=== PATIENT | female | born 1990 | race Caucasian/White ===

== ENCOUNTER 2018-04-11 08:47 | Emergency (ER) | payer OTHER ==
[2018-04-11 08:56] VITALS: BP 111/65
--- NOTE | 2018-04-11 10:08 | UC ---
Psychiatric Complaint HPI - HPI Summary HPI Summary: 28-year-old female comes in to clinic today with a chief complaint of anxiety. She reports she suffered from anxiety for years. She also suffers from GERD and she is on Nexium for IT. She is a permanent to see her doctor on April 14, 2018. She has to be started on an antianxiety medication. Denies any suicidal ideation. Sleep sometimes is disturbed concentration is intermittent. Denies any blood in the stools or black stools. She reports that when she sees her doctor she will be getting blood work. No history of hypothyroidism. - History Of Current Complaint Chief Complaint: UCGeneralIllness Stated Complaint: ANXIOUS Time Seen by Provider: 04/11/18 09:55 Hx Last Menstrual Period: 03/14/18 - Allergies/Home Medications Allergies/Adverse Reactions: Allergies Allergy/AdvReac Type Severity Reaction Status Date / Time No Known Allergies Allergy Verified 04/11/18 08:56 Home Medications: Home Medications Esomeprazole(NF) [NexIUM(NF)] 40 mg PO DAILY 04/11/18 [History Confirmed ] Ranitidine TAB (NF) [Zantac TAB (NF)] 150 mg PO BEDTIME 04/11/18 [History Confirmed 04/11/18] PMH/Surg Hx/FS Hx/Imm Hx GI/ History: Gastroesophageal Reflux Psychological History: Anxiety - Surgical History Surgical History: Yes Surgery Procedure, Year, and Place: T&a, wisdom teeth extraction - Family History Known Family History: Positive: Non-Contributory - Social History Alcohol Use: Rare Substance Use Type: None Smoking Status (MU): Never Smoked Tobacco Review of Systems All Other Systems Reviewed And Are Negative: Yes Constitutional: Positive: Negative Skin: Positive: Negative Eyes: Positive: Negative ENT: Positive: Negative Respiratory: Positive: Negative Cardiovascular: Positive: Negative Gastrointestinal: Positive: Other - HX GERD Motor: Positive: Negative Neurovascular: Positive: Negative Musculoskeletal: Positive: Negative Neurological: Positive: Negative Psychological: Positive: Negative Is Patient Immunocompromised?: No Physical Exam Appearance: Well-Appearing, No Pain Distress, Well-Nourished Vital Signs: Initial Vital Signs Temp 98.2 F 04/11/18 08:50 Pulse 75 04/11/18 08:50 Resp 18 04/11/18 08:50 BP 111/65 04/11/18 08:50 Pulse Ox 100 04/11/18 08:50 Vital Signs Reviewed: Yes Eye Exam: Normal Eyes: Positive: Conjunctiva Clear ENT: Positive: Pharynx normal Neck exam: Normal Neck: Positive: Supple Respiratory Exam: Normal Respiratory: Positive: Lungs clear, Normal breath sounds, No respiratory distress Cardiovascular: Positive: RRR Abdomen Description: Positive: Soft, Other: - Mild tenderness to palpation in the epigastrium. Negative: Distended, Guarding Musculoskeletal Exam: Normal Musculoskeletal: Positive: Strength Intact, ROM Intact Neurological Exam: Normal Neurological: Positive: Alert, Muscle Tone Normal Psychological Exam: Normal Psychological: Positive: Age Appropriate Behavior Skin Exam: Normal Psych Complaint Course/Dx - Course Course Of Treatment: The plan is to start the patient on buspirone 5 mg by mouth twice a day and follow-up with her doctor as scheduled on April 14, 2018. Patient denies any suicidal ideation. I let the patient know if anything gets worse and she has any suicidal ideation or any other concerns she is to go the emergency department and she agreed. - Differential Dx/Diagnosis Provider Diagnoses: ANXIETY Discharge - Sign-Out/Discharge Documenting (check all that apply): Patient Departure All imaging exams completed and their final reports reviewed: No Studies - Discharge Plan Condition: Stable Disposition: HOME Prescriptions: busPIRone TAB* [Buspar TAB*] 5 mg PO BID #60 tab Patient Education Materials: Anxiety (ED) Referrals: [facility] [Provider Group] Additional Instructions: FOLLOW UP WITH YOUR DOCTOR SCHEDULED 04/14/18. GO TO THE EMERGENCY DEPARTMENT FOR ANY WORSENING OF YOUR CONDITION; WORSENING ANXIETY, YOU FEEL LIKE HURTING YOURSELF OR QUESTIONS OR CONCERNS. - Billing Disposition and Condition Condition: STABLE Disposition: Home
== END 2018-04-11 10:12 | disposition home or self-care (01) ==
LOC: UCEAST 08:47
DX: F41.9 Anxiety disorder, unspecified (principal); K21.9 Gastro-esophageal reflux disease without esophagitis
CPT/HCPCS: 99212; G0463

== ENCOUNTER 2018-09-03 11:18 | Emergency (ER) | payer OTHER ==
--- NOTE | 2018-09-03 11:46 | ED ---
Syncope/Near Syncope - HPI Summary HPI Summary: A 28 y/o F presents to ED s/p syncope, near-syncope onset approx. 1000. Associated sx: mildly tremulous, nausea, lightheadedness. Denies CP, abd pain. She states just feeling weird and that she was going in and out of it. Last night, she notes having some GERD and allergies. She woke up more or less at baseline, took more CBD oil than she typically does, walked up the sugar run to [place], and had breakfast at a caf. She had a syncopal/near-syncopal episode while seated at the table, and she was dazed when she regained consciousness. She states these sorts of sx have happened once before, while sitting at a caf , she thought she was going to pass out. That time things spontaneously resolved. No PMHx DM, HTN. Medications discussed. - History Of Current Complaint Chief Complaint: EDSyncope Time Seen by Provider: 09/03/18 11:39 Hx Obtained From: Patient, Medical Records, Other: - boyfriend Onset/Duration: Sudden Onset, Lasting Minutes, Still Present Timing: Constant Activity At Onset: At Rest Associated Head Trauma: No Associated Signs And Symptoms: Lightheadedness, Other - pos: nausea, mildly tremulous. neg: CP, abd pain - Allergies/Home Medications Allergies/Adverse Reactions: Allergies Allergy/AdvReac Type Severity Reaction Status Date / Time No Known Allergies Allergy Verified 09/03/18 11:37 PMH/Surg Hx/FS Hx/Imm Hx Previously Healthy: No Endocrine/Hematology History: Denies: Hx Diabetes Cardiovascular History: Denies: Hx Hypertension EENT History: Reports: Hx Seasonal Allergies Psychiatric History: Reports: Hx Depression - Surgical History Surgery Procedure, Year, and Place: T&a, wisdom teeth extraction Infectious Disease History: No Infectious Disease History: Denies: Traveled Outside the [place] in Last 30 Days - Family History Known Family History: Positive: Other - CA, GERD - Social History Occupation: Student Lives: Alone Alcohol Use: Rare Substance Use Type: Reports: None Smoking Status (MU): Never Smoked Tobacco Review of Systems Negative: Chest Pain Positive: Nausea. Negative: Abdominal Pain Musculoskeletal: Other - pos: mildly tremulous Neurological: Other - pos: lightheadedness Positive: Syncope - near-syncope All Other Systems Reviewed And Are Negative: Yes Physical Exam - Summary Physical Exam Summary: Appearance: Well-appearing, Well-nourished, lying in bed comfortably Skin: Warm, dry, no obvious rash Eyes: sclera anicteric, no conjunctival pallor ENT: mucous membranes moist, pharynx appears normal Neck: Supple, nontender Respiratory: Clear to auscultation, no signs of respiratory distress Cardiovascular: Normal S1, S2. No murmurs. Normal distal pulses in tibial and radial bilaterally. Abdomen: Soft, nontender, normal active bowel sounds present Musculoskeletal: Normal, Strength/ROM Intact Neurological: A&Ox3, awake and alert, mentation is normal, speech is fluent and appropriate Psychiatric: affect is normal, does not appear anxious or depressed Triage Information Reviewed: Yes Vital Signs On Initial Exam: Initial Vitals Temp Pulse Resp BP Pulse Ox 98.7 F 80 18 117/74 99 09/03/18 11:34 09/03/18 11:34 09/03/18 11:34 09/03/18 11:34 09/03/18 11:34 Vital Signs Reviewed: Yes Diagnostics - Vital Signs Vital Signs Temp Pulse Resp BP Pulse Ox 09/03/18 11:34 98.7 F 80 18 117/74 99 - Laboratory Result Diagrams: 09/03/18 12:01 09/03/18 12:01 Lab Statement: Any lab studies that have been ordered have been reviewed, and results considered in the medical decision making process. - EKG 1154 Cardiac Rate: NL - 86 bpm EKG Rhythm: Sinus Rhythm Summary of EKG Findings: NSR at 86 BPM, P waves, QRS complex, and T waves are within normal limits, T waves and intervals are normal, no ischemic changes. Re-Evaluation - Re-Evaluation 1 Re-Evaluation Time: 14:01 Comment: Discussing results with pt. 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 1000. She's feeling mildly tremulous, nausea, lightheaded , but denies CP, abd pain. She states using more CBD oil this morning than usual. Medications reviewed. EKG is NSR at 86 bpm. Lab work is WNL. UA is unremarkable. Will discharge patient home. - Diagnoses Provider Diagnoses: Near syncope Discharge - Sign-Out/Discharge Documenting (check all that apply): Patient Departure - DC Patient Received Moderate/Deep Sedation with Procedure: No - Discharge Plan Condition: Good Disposition: HOME Patient Education Materials: Near Syncope (ED) Referrals: [facility] [Outside] - If Needed Additional Instructions: I would recommend avoiding the CBD oil, at least until the cause of your symptoms is clarified. - Billing Disposition and Condition Condition: GOOD Disposition: Home - Attestation Statements Document Initiated by Fei: Yes Documenting Scribe: Alison Pinto Provider For Whom Fei is Documenting (Include Credential): Dr. Rowdy Montgomery MD Scribe Attestation: I, Alison Pinto, scribed for Dr. Rowdy Montgomery MD on 09/06/18 at 0624. Scribe Documentation Reviewed: Yes Provider Attestation: The documentation as recorded by the Alison olivier accurately reflects the service I personally performed and the decisions made by me, Dr. Rowdy Montgomery MD Status of Scribe Document: Viewed
[2018-09-03] MEDS ORDERED: NS 0.9% 1000 ML** 2,000 ML IV ONE (11:47)
[2018-09-03 12:17] LABS: ABS Basophils 0.1 10^3/ul (0-0.2); ABS Eosinophils 0.2 10^3/ul (0-0.6); ABS Lymphocytes 1.9 10^3/ul (1.0-4.8); ABS Monocytes 0.7 10^3/ul (0-0.8); ABS Neutrophils 3.9 10^3/ul (1.5-7.7); ABS Nucleated RBC 0 10^3/ul; Eosinophil % 2.3 %; Hematocrit 36 % (33-41); Mean Corpuscular HGB Conc 33 g/dL (31-36); Mean Corpuscular Hemoglobin 29 pg (27-31); Mean Corpuscular Volume 88 fL (80-97); Mean Platelet Volume 7.9 fL (7.4-10.4); Nucleated Red Blood Cells % 0.1; Platelet Count 247 10^3/uL (150-450); Red Blood Count 4.09 10^6 /uL (3.70-4.87); Red Cell Distribution Width 14 % (10.5-15); White Blood Count 6.7 10^3/uL (3.5-10.8)
--- OUTSIDE RECORDS SUMMARY | 2018-09-03 12:31 | XMS REPORT | Continuity of Care Document ---
:1990 External Reference #:[id number] Author Name Brigid Echeverria PA-C Address [address] [place] [address] [place] [address] Care Team Providers Name Role Phone Kelly Murphy NP Care Team Information Manager [employer] Unavailable Kelly Murphy NP Primary Care Physician Unavailable Payers Date Identification Numbers Payment Provider Subscriber Policy Number: [id number] [facility] Mae Quintanilla Group Number: [id number] [address] PayID: [id number] [place] [address] Advance Directives Description No Information Available Problems Date Description Provider Status Onset: 05/30/2018 Abdominal pain Brigid Echeverria PA-C Active Onset: 04/29/2018 Epigastric pain Brigid Echeverria PA-C Active Onset: 04/29/2018 Flatulence, eructation and gas Brigid Echeverria PA-C Active pain Onset: 04/29/2018 Gastroesophageal reflux disease Brigid Echeverria PA-C Active Family History Date Family Member(s) Observation Comments Father Pancreatic Cancer Mother Gastroesophageal Reflux Disease (GERD) Social History Type Date Description Comments Sex Unknown Tobacco Use Start: Unknown Patient has never smoked Smoking Status Reviewed: 08/06/18 Patient has never smoked Allergies, Adverse Reactions, Alerts Description No Known Drug Allergies Medications Medication Date Status Form Strength Qnty SIG Indications Ordering Provider Dexilant Active Capsules 30mg 60caps take one K21.9 William 019 capsule Tc, by mouth DO twice a day Baclofen Active Tablets 10mg 90tabs Take 1 K21.9 Elizabeth 018 Tablet By Rudolph clarke MD Three Times A Day Before Meals Ranitidine HCL Active Tablets 300mg 60tabs 1 tab PO K21.9 William 018 prn Tc, DO Viibryd Active Tablets 10mg 1 by Unknown 000 mouth every day Xifaxan Hx Tablets 550mg 42tabs 1 tablet William 019 - by mouth Tc, 3 times DO 019 daily for 14 days Carafate Hx Tablets 1gm 90tabs 1 tablet Elizabeth 019 - by mouth Fobelkys-Pessi on an MD vince 019 empty stomach 3-4 times daily Dexilant Hx Capsules 60mg 30caps 1 by William Saravia - DR mouth Tc, every day DO 019 Xifaxan Hx Tablets 550mg 42tabs 1 tablet R14.0 William 019 - by mouth Tc, 3 times DO 019 daily for 14 days Baclofen Hx Tablets 5mg 90tabs 1 tab by K21.9 William 018 - mouth tid Tc, before DO 018 meals Bupropion HCL Hx Tablets ER 150mg Proper,Adam ER (XL) 000 - 24HR ly,COVER MAKING MACHINE OPERATOR 019 Esomeprazole Hx Capsules 40mg Proper,Adam Magnesium 000 - DR ly,COVER MAKING MACHINE OPERATOR 019 Immunizations Description No Information Available Vital Signs Date Vital Result Comment 08/06/2018 8:16am Height 64 inches 5'4" Weight 128.00 lb BMI (Body Mass Index) 22.0 kg/m2 07/09/2018 8:56am Height 64 inches 5'4" Weight 126.00 lb BMI (Body Mass Index) 21.6 kg/m2 05/30/2018 9:14am Height 64 inches 5'4" Weight 130.00 lb BMI (Body Mass Index) 22.3 kg/m2 04/29/2018 8:16am Height 64 inches 5'4" Weight 125.00 lb BP Systolic 104 mmHg BP Diastolic 70 mmHg BMI (Body Mass Index) 21.5 kg/m2 Results Test Date Facility Test Result H/L Range Note Laboratory test 06/13/2018 [facility] – [place] Clotest SEE RESULT 1, 2 finding BELOW Laboratory test 06/13/2018 [facility] [place] Surgical SEE RESULT 3, 4 finding Interface Order BELOW 1 [id number] SEE RESULT BELOW Name: DWIGHTMAE : [address]: William Montez DO Acct: [id number] Unit: [id number] AGE: 28 Location: [facility] Re06/13/18 SEX: F Status: DEP REF SPEC: [id number] JOEY: 06/13/18-934 [facility] DR: William Montez DO REQ: [id number] RECD: 06/13/18 STATUS: TAWANDA BOND DR: Cici Primary Care Phys,NOPCP _ SOURCE: GAS ANTRUM SPDESC: ORDERED: Ignacio COMMENTS: [id number] Procedure Result Reported Site Clotest Final 06/14/18- 713 ML Clotest Negative * ML - Main Lab . END OF REPORT DEPARTMENT OF PATHOLOGY, [address] [place] [address] Cosme Biswas M.D. Director [facility] # [id number] 3 [id number] 4 SEE RESULT BELOW Name: MAE QUINTANILLA : [address]: William Montez DO Acct: [id number] Unit: [id number] AGE: 28 Location: ENDOCEC Re06/13/18 SEX: F Status: DEP REF SPEC: [id number] JOEY: 06/13/18-0932 [facility] DR: William Montez DO REQ: [id number] RECD: 06/13/187772 STATUS: MICHAELA BOND DR: Kelly Murphy COVER MAKING MACHINE OPERATOR _ ORDERED: LEVEL 4/5 COMMENTS: [id number] FINAL DIAGNOSIS 1. Small bowel, duodenum, biopsy: -- Small bowel mucosa with normal villous architecture and no significant pathologic abnormality. 2. Stomach, body, biopsy: -- Gastric antral and fundic gland mucosa with minimal patchy chronic inflammation. -- No active gastritis nor Helicobacter pylori-like organisms identified on H E microscopy. See comment. 3. Distal esophagus at 41 cm, biopsy: -- Gastroesophageal transition zone mucosa with mild nonspecific inflammation and reactive glandular epithelial changes. -- No specific features of reflux esophagitis identified. -- No goblet cell/intestinal metaplasia or dysplasia identified. 4. Distal esophagus at 40 cm, biopsy: -- Gastroesophageal transition zone mucosa with mild nonspecific inflammation and reactive glandular epithelial changes. -- No specific features of reflux esophagitis identified. -- No goblet cell/intestinal metaplasia or dysplasia identified. 5. Esophagus, mid, biopsy: -- Squamous mucosa with no significant pathologic abnormality. --No glandular component identified. Comment: An immunohistochemical stain for Helicobacter pylori-like organisms is pending in part 2 and will be reported in an addendum. CONTINUED ON NEXT PAGE DEPARTMENT OF PATHOLOGY, [address] [place] [address] Cosme Biswas M.D. Director [facility] # [id number] RUN DATE: 06/16/18 [facility] LAB LIVE PAGE 2 Patient: MAE QUINTANILLA [id number] (Continued) POST-OPERATIVE DIAGNOSIS (Continued) POST-OPERATIVE DIAGNOSIS EGD: esophagus - COM2 unknown Powers?s esophagus with island; biopsy 41 cm; no hiatal hernia; 40 cm island; gastric - gastritis antrum; BRANDON test; gastropathy mild body; duodenum - normal, biopsy, rule out Celiac disease GROSS DESCRIPTION 1. The specimen is received in formalin labeled, Duodenal Biopsy, and consists of a 0.8 x 0.4 x 0.2 cm aggregate of breen-pink irregular soft tissue fragments which is submitted entirely in one cassette. 2. The specimen is received in formalin labeled, Gastric Body Biopsy, and consists of two breen-pink irregular soft tissue fragments measuring 0.3 x 0.2 x 0.1 cm and 0.9 by up to 0.2 x 0.1 cm which are submitted entirely in one cassette. 3. The specimen is received in formalin labeled, Distal Esophagus at 41 cm , and consists of a 0.9 x 0.5 x 0.1 cm aggregate of breen-pink irregular soft tissue fragments which is submitted entirely in one cassette. 4. The specimen is received in formalin labeled, Distal Esophagus at 40 cm Biopsy, and consists of two breen-pink irregular soft tissue fragments measuring 0.4 x 0.2 x 0.1 cm and 0.5 by up to 0.3 x 0.1 cm which are submitted entirely in one cassette. 5. The specimen is received in formalin labeled, Mid Esophagus Biopsy, and consists of a 0.4 x 0.4 x 0.1 cm aggregate of translucent breen-white irregular soft tissue fragments which is submitted entirely in one cassette. Signed by and Reported on: Cosme Biswas MD 1147 END OF REPORT DEPARTMENT OF PATHOLOGY, [address] [place] [address] Cosme Biswas M.D. Director [facility] # [id number] SEE RESULT BELOW Name: MAE QUINTANILLA : [address]: William Montez DO Acct: [id number] Unit: [id number] AGE: 28 Location: ENDOCEC Re06/13/18 SEX: F Status: DEP REF SPEC: [id number] JOEY: 06/13/180932 [facility] DR: William Montez DO REQ: [id number] RECD: 06/13/188413 STATUS: MICHAELA BOND DR: Kelly Murphy COVER MAKING MACHINE OPERATOR _ ORDERED: LEVEL 4/5, IMMUNO-FIRST COMMENTS: [id number] ADDENDUM Addendum: An immunohistochemical stain for Helicobacter pylori-like organisms performed with appropriate controls on part 2 is negative. Addendum Signed (signature on file) Cosme Biswas MD 1409 FINAL DIAGNOSIS 1. Small bowel, duodenum, biopsy: -- Small bowel mucosa with normal villous architecture and no significant pathologic abnormality. 2. Stomach, body, biopsy: -- Gastric antral and fundic gland mucosa with minimal patchy chronic inflammation. -- No active gastritis nor Helicobacter pylori-like organisms identified on H E microscopy. See comment. 3. Distal esophagus at 41 cm, biopsy: -- Gastroesophageal transition zone mucosa with mild nonspecific inflammation and reactive glandular epithelial changes. -- No specific features of reflux esophagitis identified. -- No goblet cell/intestinal metaplasia or dysplasia identified. 4. Distal esophagus at 40 cm, biopsy: -- Gastroesophageal transition zone mucosa with mild nonspecific inflammation and reactive glandular epithelial changes. -- No specific features of reflux esophagitis identified. -- No goblet cell/intestinal metaplasia or dysplasia identified. 5. Esophagus, mid, biopsy: -- Squamous mucosa with no significant pathologic abnormality. CONTINUED ON NEXT PAGE DEPARTMENT OF PATHOLOGY, [address] [place] [address] Cosme Biswas M.D. Director [facility] # [id number] RUN DATE: 06/17/18 [facility] LAB LIVE PAGE 2 Patient: DWIGHTDIMAMAE [id number] (Continued) FINAL DIAGNOSIS (Continued) --No glandular component identified. Comment: An immunohistochemical stain for Helicobacter pylori-like organisms is pending in part 2 and will be reported in an addendum. POST-OPERATIVE DIAGNOSIS EGD: esophagus - COM2 unknown Powers?s esophagus with island; biopsy 41 cm; no hiatal hernia; 40 cm island; gastric - gastritis antrum; BRANDON test; gastropathy mild body; duodenum - normal, biopsy, rule out Celiac disease GROSS DESCRIPTION 1. The specimen is received in formalin labeled, Duodenal Biopsy, and consists of a 0.8 x 0.4 x 0.2 cm aggregate of breen-pink irregular soft tissue fragments which is submitted entirely in one cassette. 2. The specimen is received in formalin labeled, Gastric Body Biopsy, and consists of two breen-pink irregular soft tissue fragments measuring 0.3 x 0.2 x 0.1 cm and 0.9 by up to 0.2 x 0.1 cm which are submitted entirely in one cassette. 3. The specimen is received in formalin labeled, Distal Esophagus at 41 cm , and consists of a 0.9 x 0.5 x 0.1 cm aggregate of breen-pink irregular soft tissue fragments which is submitted entirely in one cassette. 4. The specimen is received in formalin labeled, Distal Esophagus at 40 cm Biopsy, and consists of two breen-pink irregular soft tissue fragments measuring 0.4 x 0.2 x 0.1 cm and 0.5 by up to 0.3 x 0.1 cm which are submitted entirely in one cassette. 5. The specimen is received in formalin labeled, Mid Esophagus Biopsy, and consists of a 0.4 x 0.4 x 0.1 cm aggregate of translucent breen-white irregular soft tissue fragments which is submitted entirely in one cassette. Signed by and Reported on: Cosme Biswas MD 1147 END OF REPORT DEPARTMENT OF PATHOLOGY, [address] [place] [address] Cosme Biswas M.D. Director [facility] # [id number] Procedures Date Code Description Status 06/13/2018 87664 Moderate Sedation Services; Same Phys Each Additional 15 Completed Mins 06/13/2018 28818 Moderate Sedation Services; Same Phys Intl 15 Mins; PT >=5 Completed Years 06/13/2018 42512 EGD+Biopsy Single Or Multiple Completed Encounters Type Date Location Provider Dx Diagnosis Office Visit 07/09/2018 Bev Sylvester1.9 [facility]astro- esophageal 9[facility] Echeverria reflux disease without esophagitis R14.0 Abdominal distension (gaseous) Office 05/30/2018 Bev Mensah K21.9 Gastro-esophageal Visit 9:[facility]a [facility], reflux disease PA-C without esophagitis R14.0 Abdominal distension (gaseous) R10.13 Epigastric pain R10.10 Upper abdominal pain, unspecified Office 04/29/2018 Bev Mensah K21.9 Gastro-esophageal Visit 8:15a [facility], reflux disease PA-C without esophagitis R14.0 Abdominal distension (gaseous) R10.13 Epigastric pain Plan of Treatment Future Appointment(s):10/09/2018 8:15 am - Brigid Echeverria PA-C at [facility]08/06/2018 - ETHAN Woods- CK21.9 Gastro-esophageal reflux disease without esophagitis
[2018-09-03 12:32] LABS: ALT 13 U/L (7-52); AST 23 U/L (13-39); Albumin/Globulin Ratio 1.6 (1-3); Alkaline Phosphatase 64 U/L (34-104); Anion Gap 7 mmol/L (2-11); BUN/Creatinine Ratio 17.7 (8-20); Blood Urea Nitrogen 14 mg/dL (6-24); CO2 Carbon Dioxide 25 mmol/L (22-32); Calcium 8.8 mg/dL (8.6-10.3); Chloride 104 mmol/L (101-111); EGFR African American 106.4 (>60); Globulin 2.5 g/dL (2-4); Glucose 98 mg/dL (70-100); Potassium 3.6 mmol/L (3.5-5.0); Sodium 136 mmol/L (135-145); Total Protein 6.5 g/dL (6.4-8.9)
[2018-09-03 12:39] LABS: HCG Pregnancy < 0.60 mIU/mL
[2018-09-03 13:56] LABS: Urine Appearance Clear; Urine Bilirubin Negative (Negative); Urine Blood Negative (Negative); Urine Color Straw; Urine Glucose Negative (Negative); Urine Ketones Negative (Negative); Urine Nitrite Negative (Negative); Urine Protein Negative (Negative); Urine Specific Gravity 1.009 (1.010-1.030); Urine Urobilinogen Negative (Negative)
[2018-09-03 14:26] VITALS: BP 106/63
== END 2018-09-03 14:25 | disposition home or self-care (01) ==
LOC: ED 11:18
DX: R55 Syncope and collapse (principal)
CPT/HCPCS: 36415; 80053; 81003; 83605; 84443; 84702; 85025; 93005; 96360; 96361; 99282